=== PATIENT | male | born 1975 | race Caucasian/White ===

== ENCOUNTER 2020-07-15 01:44 | Inpatient (IN) | payer MEDICAID ==
[~2020-07-15] VITALS: Ht 175.3 cm; Wt 99.8 kg
[2020-07-15 01:51] VITALS: Ht 175.3 cm; Wt 99.8 kg
[2020-07-15 02:25] LABS: BASOPHIL % 0.8 % (0-2); PLATELET COUNT 274 x10^3mcL (130-400)
[2020-07-15 02:26] LABS: RED CELL DISTRIBUTION WIDTH 17.8 % (11.5-14.5)
[2020-07-15 02:29] LABS: CALCIUM 8.9 mg/dL (8.5-10.1); CARBON DIOXIDE 30.9 mmol/L (21-32); CREATININE SERUM 1.4 mg/dL (0.7-1.3); POTASSIUM SERUM 3.9 mmol/L (3.5-5.1)
[2020-07-15 02:34] LABS: BILIRUBIN TOTAL 1.22 mg/dL (0.20-1.00); TOTAL PROTEIN, SERUM 7.2 g/dL (6.4-8.2)
[2020-07-15 02:38] LABS: ALBUMIN 2.4 g/dL (3.4-5.0)
[2020-07-15] MEDS ORDERED: CARVEDILOL ER40 MG PO (03:20)
[2020-07-15] MEDS ORDERED: FORTAMET1000 MG PO (03:20)
[2020-07-15] MEDS ORDERED: GLIPIZIDE XL5 M2 PO (03:20)
[2020-07-15 04:51] LABS: UA SPECIFIC GRAVITY 1.025 (1.005-1.035); microscopic required? YES; urine erythrocyte 1+ (NEGATIVE)
[2020-07-15 06:04] VITALS: BP 174/93
[2020-07-15 08:20] VITALS: BP 155/94
[2020-07-15 13:46] LABS: FREE T4 1.73 ng/dL (0.76-1.46); FREE THYROXINE INDEX 3.7 ug/dL (1.4-4.5); T4(THYROXINE) 7.7 ug/dL (4.7-13.3)
[2020-07-15 13:48] VITALS: BP 155/94
[2020-07-15 14:26] LABS: T3 TOTAL 1.19 ng/mL
[2020-07-15 15:01] LABS: AMPHETAMINE QUAL UR NONE DETECTED (See below)
[2020-07-15 18:06] VITALS: BP 167/110
[2020-07-15 21:34] VITALS: BP 169/98
[2020-07-16] VITALS (9 sets, daily range): BP systolic 109–161; BP diastolic 62–105
[2020-07-16 07:10] LABS: CALCIUM 8.5 mg/dL (8.5-10.1); CREATININE SERUM 1.4 mg/dL (0.7-1.3); MAGNESIUM 1.5 mg/dL (1.8-2.4); PHOSPHOROUS 5.3 mg/dL (2.5-4.9); POTASSIUM SERUM 3.5 mmol/L (3.5-5.1)
[2020-07-16 07:22] LABS: PLATELET COUNT 188 x10^3mcL (130-400)
[2020-07-16 07:50] LABS: BASOPHIL % 0 % (0-2); RED CELL DISTRIBUTION WIDTH 18.2 % (11.5-14.5)
[2020-07-17 03:46] VITALS: BP 128/81
[2020-07-17 07:00] VITALS: BP 132/76
[2020-07-17 07:50] LABS: CALCIUM 8.3 mg/dL (8.5-10.1); CARBON DIOXIDE 35.3 mmol/L (21-32); CHLORIDE SERUM 98 mmol/L (98-107); CHOLESTEROL 145 mg/dL (<200); CREATININE SERUM 1.3 mg/dL (0.7-1.3); GFR1 > 60 mL/min; GLUCOSE SERUM 141 mg/dL (74-106); POTASSIUM SERUM 4.2 mmol/L (3.5-5.1); SODIUM SERUM 135 mmol/L (136-145); TRIGLYCERIDES 67 mg/dL (<150)
[2020-07-17 08:29] LABS: PLATELET COUNT 200 x10^3mcL (130-400)
[2020-07-17 09:00] VITALS: BP 124/70
[2020-07-17 09:04] LABS: BASOPHIL % 0 % (0-2); RED CELL DISTRIBUTION WIDTH 18.2 % (11.5-14.5)
[2020-07-17 09:09] LABS: CHOLESTEROL/HDL RATIO 4.5; HDL CHOLESTEROL 32 mg/dL (40-60)
[2020-07-17 12:17] VITALS: BP 130/68
[2020-07-17 15:48] VITALS: BP 150/76
[2020-07-17 19:29] VITALS: BP 103/70
[2020-07-18 06:30] VITALS: BP 159/87
[2020-07-18 06:57] LABS: CALCIUM 8.5 mg/dL (8.5-10.1); CARBON DIOXIDE 29.8 mmol/L (21-32); CHLORIDE SERUM 98 mmol/L (98-107); CREATININE SERUM 1.2 mg/dL (0.7-1.3); GFR1 > 60 mL/min; GLUCOSE SERUM 150 mg/dL (74-106); MAGNESIUM 2.2 mg/dL (1.8-2.4); POTASSIUM SERUM 3.8 mmol/L (3.5-5.1); SODIUM SERUM 133 mmol/L (136-145)
[2020-07-18 07:11] LABS: BASOPHIL % 0.1 % (0-2); PLATELET COUNT 228 x10^3mcL (130-400)
[2020-07-18 07:12] LABS: RED CELL DISTRIBUTION WIDTH 18.2 % (11.5-14.5)
[2020-07-18] MEDS ORDERED: LIPI20 PO (07:54)
[2020-07-18] MEDS ORDERED: APR50 PO (07:54)
[2020-07-18] MEDS ORDERED: CORE25 PO (07:55)
[2020-07-18] MEDS ORDERED: COZ50 PO (07:55)
[2020-07-18] MEDS ORDERED: BAY PO (07:55)
[2020-07-18] MEDS ORDERED: L40 PO (07:56)
[2020-07-18] MEDS ORDERED: BRILINTA90 M1 PO (08:07)
[2020-07-18] MEDS ORDERED: CLINDAMYCIN300 M1 PO (08:11)
[2020-07-18 08:54] VITALS: BP 158/90
[2020-07-18 12:18] VITALS: BP 133/77
[2020-07-18 13:03] VITALS: BP 133/77
[2020-07-18 16:47] VITALS: BP 142/83
== END 2020-07-18 18:41 | disposition home or self-care (01) | DRG 174 ==
LOC: ED 01:44 → DU 04:26
PROVIDERS: Emergency Medicine; Internal Medicine; ADMIT Internal Medicine; ATTEND Internal Medicine
PROC: 4A023N7 Measurement of Cardiac Sampling and Pressure, Left Heart, Percutaneous Approach (ICD-10-PCS; principal; 2020-07-17)
PROC: 027034Z Dilation of Coronary Artery, One Artery with Drug-eluting Intraluminal Device, Percutaneous Approach (ICD-10-PCS; 2020-07-17)
PROC: B2111ZZ Fluoroscopy of Multiple Coronary Arteries using Low Osmolar Contrast (ICD-10-PCS; 2020-07-17)
DX: I21.4 Non-ST elevation (NSTEMI) myocardial infarction (principal); N17.0 Acute kidney failure with tubular necrosis; I50.21 Acute systolic (congestive) heart failure; E43 Unspecified severe protein-calorie malnutrition; E11.65 Type 2 diabetes mellitus with hyperglycemia; E66.01 Morbid (severe) obesity due to excess calories; D75.1 Secondary polycythemia; I11.0 Hypertensive heart disease with heart failure; E87.1 Hypo-osmolality and hyponatremia; I16.1 Hypertensive emergency; Z20.828 Contact with and (suspected) exposure to other viral communicable diseases; I42.9 Cardiomyopathy, unspecified; Z68.43 Body mass index [BMI] 50.0-59.9, adult; Z88.0 Allergy status to penicillin
CPT/HCPCS: CLHCL; 76937; 82962; 83880; 84439; C1725; C1769; C1876; C1894; G0378; J1644; J1650; J1815; J1940; J2001; J2250; J3010; J3475; J3490; Q9967; U0003